=== PATIENT | male | born 1975 | race Caucasian/White ===

== ENCOUNTER 2016-10-22 02:41 | Emergency (ER) | payer MEDICAID ==
[2016-10-22 02:50] VITALS: BP 138/90; PULSE 71; RESP 18; TEMP 97.7; O2SAT 99; BMI 30.9
[2016-10-22] MEDS ORDERED: Albuterol-Ipratrop 3 mg / 0.5 (3 ml) UD IH STA (03:01)
--- NOTE | 2016-10-22 03:04 | ED PDOC ---
Arrival/HPI - General Chief Complaint: Chest Pain Time Seen by Provider: 10/22/16 02:42 Historian: Patient - History of Present Illness Narrative History of Present Illness (Text): 10/22/16 02:58 Ramiro Valdes is a 40 year old male smoker, whose past medical history includes asthma, who presents to the Emergency department complaining of chest tightness. Patient states at 01:00 tonight he got up, went to the bathroom, and began experiencing chest tightness. Patient states chest tightness is different from his usual asthma symptoms. Patient reports a family history of heart disease in both his mother and father. Patient denies any fever, chills, shortness of breath, nausea, vomiting, diarrhea, urinary symptoms, back pain, neck pain, headache, dizziness, or any other complaints. Time/Duration: 1-3 hours (01:00 tonight) Symptom Onset: Gradual Symptom Course: Unchanged Quality: Tightness Activities at Onset: Rest, Light Context: Home Past Medical History - Provider Review Nursing Documentation Reviewed: Yes - Infectious Disease Hx of Infectious Diseases: None - Cardiac Hx Cardiac Disorders: No - Pulmonary Hx Respiratory Disorders: Yes Hx Asthma: Yes - Neurological Hx Neurological Disorder: No - HEENT Hx HEENT Disorder: No - Renal Hx Renal Disorder: No - Endocrine/Metabolic Hx Endocrine Disorders: No - Hematological/Oncological Hx Blood Disorders: Yes Hx Anemia: Yes Hx Hepatitis C: Yes - Integumentary Hx Dermatological Disorder: No - Musculoskeletal/Rheumatological Hx Musculoskeletal Disorders: No - Gastrointestinal Hx Gastrointestinal Disorders: No - Genitourinary/Gynecological Hx Genitourinary Disorders: No - Psychiatric Hx Psychophysiologic Disorder: No Hx Anxiety: No Hx Bipolar Disorder: No Hx Depression: No Hx Emotional Abuse: No Hx Hallucinations: No Hx Panic Disorder: No Hx Post Traumatic Stress Disorder: No Hx Psychosis: No Hx Physical Abuse: No Hx Schizophrenia: No Hx Sexual Abuse: No Hx Substance Use: No - Surgical History Other/Comment: Hernia repair - Anesthesia Hx Anesthesia: Yes Hx Anesthesia Reactions: No Hx Malignant Hyperthermia: No Family/Social History - Physician Review Nursing Documentation Reviewed: Yes Family/Social History: CAD/CT Smoking Status: Heavy Smoker > 10 Cigarettes Daily Hx Alcohol Use: No Hx Substance Use: No Allergies/Home Meds Allergies/Adverse Reactions: Allergies No Known Allergies Allergy (Verified 07/08/15 08:19) Review of Systems - Physician Review All systems were reviewed & negative as marked: Yes - Review of Systems Constitutional: Normal. absent: Fevers Eyes: Normal ENT: Normal Respiratory: Normal Cardiovascular: Chest Pain Gastrointestinal: Normal. absent: Abdominal Pain, Diarrhea, Nausea, Vomiting Genitourinary Male: Normal. absent: Dysuria, Frequency, Hematuria, Urinary Output Changes Musculoskeletal: Normal. absent: Back Pain, Neck Pain Skin: Normal. absent: Rash Neurological: Normal. absent: Headache, Dizziness Endocrine: Normal Hemo/Lymphatic: Normal Psychiatric: Normal Physical Exam Vital Signs Reviewed: Yes Vital Signs Temp Pulse Resp BP Pulse Ox 10/22/16 02:49 97.7 F 71 18 138/90 99 Temperature: Afebrile Blood Pressure: Normal Pulse: Regular Respiratory Rate: Normal Appearance: Positive for: Well-Appearing, Non-Toxic, Comfortable Pain Distress: None Mental Status: Positive for: Alert and Oriented X 3 - Systems Exam Head: Present: Atraumatic, Normocephalic Pupils: Present: PERRL Extroacular Muscles: Present: EOMI Conjunctiva: Present: Normal Mouth: Present: Moist Mucous Membranes Neck: Present: Normal Range of Motion Respiratory/Chest: Present: Wheezes (Slight wheeze). No: Respiratory Distress, Accessory Muscle Use Cardiovascular: Present: Regular Rate and Rhythm, Normal S1, S2. No: Murmurs Abdomen: Present: Normal Bowel Sounds. No: Tenderness, Distention, Peritoneal Signs Back: Present: Normal Inspection Upper Extremity: Present: Normal Inspection. No: Cyanosis, Edema Lower Extremity: Present: Normal Inspection. No: Edema Neurological: Present: GCS=15, CN II-XII Intact, Speech Normal Skin: Present: Warm, Dry, Normal Color. No: Rashes Psychiatric: Present: Alert, Oriented x 3, Normal Insight, Normal Concentration Medical Decision Making ED Course and Treatment: 10/22/16 02:58 Impression: 40 year old male complaining of chest tightness since 01:00. Plan: -- EKG -- Chest X-ray -- Labs, cardiac enzymes -- Aspirin -- Duoneb -- Reassess and disposition Progress Notes: Reviewed EKG, NSR at [address]-segment elevations or depressions, no T-wave inversions, normal intervals. 10/22/16 04:43 Reviewed radiology, Chest X-ray shows no acute processes. 10/22/16 04:46 Discussed results and plan with patient. Patient was offered hospital admission for further evaluation and monitoring of symptoms. Patient states he does not wish to stay. Patient is choosing to leave against medical advice. Explained to the patient that choosing to do so may result in permanent bodily harm or . Discussed at great length that without further evaluation and monitoring there may be unforeseen circumstances and/or deterioration causing permanent bodily harm or as a result of their choice. Patient is alert, oriented, and shows the mental capacity to make clear decisions regarding the patients health care at this time. Patient continues to wish to leave against medical advice. Patient has been advised that they should return to the emergency room immediately if they change their mind at any time, or if their condition begins to change or worsen in any way. - Lab Interpretations Lab Results: 10/22/16 03:25 10/22/16 03:25 Lab Results 10/22/16 03:25: WBC 8.8, RBC 4.16, Hgb 12.3 L, Hct 36.6 L, MCV 88.0, MCH 29.6, MCHC 33.6, RDW 14.2, Plt Count 237, MPV 10.8 10/22/16 03:25: Sodium 141, Potassium 4.3, Chloride 106, Carbon Dioxide 27, Anion Gap 12, BUN 17, Creatinine 1.0, Est GFR ( Amer) > 60, Est GFR (Non- Af Amer) > 60, Random Glucose 120 H, Calcium 8.7, Total Bilirubin 0.3, AST 43, ALT 33, Alkaline Phosphatase 59, Lactate Dehydrogenase 511, Total Creatine Kinase 272 H, CK-MB (CK-2) 1.4, CK-MB (CK-2) % Cancelled, Troponin I < 0.01, Total Protein 7.2, Albumin 4.1, Globulin 3.1, Albumin/Globulin Ratio 1.3 10/22/16 03:25: PT 10.7, INR 0.99, APTT 24.2 I have reviewed the lab results: Yes - RAD Interpretation Radiology Orders: 10/22/16 02:59 CHEST PORTABLE [RAD] Stat Parachutist/Combatant Diver Qualified: ED Physician - EKG Interpretation Interpreted by ED Physician: Yes Type: 12 lead EKG - Medication Orders Current Medication Orders: Discontinued Medications Albuterol/Ipratropium (Duoneb 3 Mg/0.5 Mg (3 Ml) Ud) 3 ml IH ONCE STA Stop: 10/22/16 03:02 Last Admin: 10/22/16 03:11 Dose: 3 ml Aspirin (Aspirin) 325 mg PO ONCE STA Stop: 10/22/16 03:02 Last Admin: 10/22/16 03:11 Dose: 325 mg - Scribe Statement The provider has reviewed the documentation as recorded by the Mamadouibjacqueline Gonzalez All medical record entries made by the Mamadouibjacqueline were at my direction and personally dictated by me. I have reviewed the chart and agree that the record accurately reflects my personal performance of the history, physical exam, medical decision making, and the department course for this patient. I have also personally directed, reviewed, and agree with the discharge instructions and disposition. Disposition/Present on Arrival - Present on Arrival Any Indicators Present on Arrival: No History of DVT/PE: No History of Uncontrolled Diabetes: No Urinary Catheter: No History of Decub. Ulcer: No History Surgical Site Infection Following: None - Disposition Have Diagnosis and Disposition been Completed?: Yes Diagnosis: Chest pain Disposition: AGAINST MEDICAL ADVICE Disposition Time: 04:49 Condition: STABLE Discharge Instructions (ExitCare): Chest Pain (ED) Prescriptions: Albuterol HFA [Ventolin HFA 90 mcg/actuation (8 g)] 2 puff IH [id number] PRN #1 puff PRN Reason: Wheezing
[2016-10-22 04:01] LABS: INR 0.99 (0.93-1.08); PARTIAL THROMBOPLASTIN TIME 24.2 Seconds (23.7-30.8)
[2016-10-22 04:02] LABS: ALB/GLOB RATIO 1.3 (1.1-1.8); ALKALINE PHOSPHATASE 59 U/L (38-133); ALT/SGPT 33 U/L (7-56); AST/SGOT 43 U/L (15-59); BILIRUBIN,TOTAL 0.3 mg/dL (0.2-1.3); BLOOD UREA NITROGEN 17 mg/dL (7-21); CALCIUM 8.7 mg/dL (8.4-10.5); CARBON DIOXIDE 27 mmol/L (21-33); CHLORIDE 106 mmol/L (98-107); GFR AFRICAN-AMERICAN > 60; GLUCOSE,RANDOM 120 mg/dL (70-110); POTASSIUM 4.3 mmol/L (3.6-5.0); SODIUM 141 mmol/L (132-148); TOTAL PROTEIN 7.2 g/dL (5.8-8.3)
[2016-10-22 04:05] LABS: HEMATOCRIT 36.6 % (42.0-52.0); MEAN CORPUSCULAR HEMOGLOBIN 29.6 pg (25.0-35.0); MEAN CORPUSCULAR HGB CONC 33.6 g/dl (31.0-37.0); MEAN PLATELET VOLUME 10.8 fl (7.0-11.0); RED CELL DISTRIBUTION WIDTH 14.2 % (11.5-14.5); WHITE BLOOD COUNT 8.8 10^3/ul (4.5-11.0)
[2016-10-22 04:13] LABS: TROPONIN I < 0.01 ng/mL
--- NOTE | 2016-10-22 12:14 | RAD ---
HISTORY: chest tightness COMPARISON: No prior. FINDINGS: LUNGS: No active pulmonary disease. PLEURA: No significant pleural effusion identified, no pneumothorax apparent. CARDIOVASCULAR: Normal. OSSEOUS STRUCTURES: No significant abnormalities. VISUALIZED UPPER ABDOMEN: Normal. OTHER FINDINGS: None. IMPRESSION: No active disease.
--- NOTE | 2016-10-23 01:35 | CARD ---
APPROVED REPORT EKG Measurement Heart [id number] <Conclusion> Normal sinus rhythm Normal ECG
== END 2016-10-22 04:40 | disposition left against medical advice (07) ==
LOC: ED 02:41
DX: R07.9 Chest pain, unspecified (principal); Z82.49 Family history of ischemic heart disease and other diseases of the circulatory system

== ENCOUNTER 2017-10-03 00:22 | Observation (INO) | payer MEDICAID ==
--- NOTE | 2017-10-03 01:55 | ED PDOC ---
Arrival/HPI - General Chief Complaint: Chest Pain Time Seen by Provider: 10/03/17 00:31 Historian: Patient, Family - History of Present Illness Narrative History of Present Illness (Text): 10/03/17 01:55 Ramiro Valdes is a 41 year old male smoker, whose past medical history includes asthma, who presents to the Emergency department complaining of intermittent chest heaviness radiating down his left arm since yesterday afternoon. Patient notes he has experienced similar symptoms in the past. Patient reports a family history of heart disease. Patient denies any fever, chills, shortness of breath, nausea, vomiting, diarrhea, urinary symptoms, back pain, neck pain, headache, dizziness, or any other complaints. Symptom Onset: Gradual Symptom Course: Unchanged Activities at Onset: Light Context: Home Past Medical History - Provider Review Nursing Documentation Reviewed: Yes - Infectious Disease Hx of Infectious Diseases: None - Cardiac Hx Cardiac Disorders: No - Pulmonary Hx Respiratory Disorders: Yes Hx Asthma: Yes - Neurological Hx Neurological Disorder: No - HEENT Hx HEENT Disorder: No - Renal Hx Renal Disorder: No - Endocrine/Metabolic Hx Endocrine Disorders: No - Hematological/Oncological Hx Blood Disorders: Yes Hx Anemia: Yes Hx Hepatitis C: Yes - Integumentary Hx Dermatological Disorder: No - Musculoskeletal/Rheumatological Hx Musculoskeletal Disorders: No - Gastrointestinal Hx Gastrointestinal Disorders: No - Genitourinary/Gynecological Hx Genitourinary Disorders: No - Psychiatric Hx Psychophysiologic Disorder: No Hx Anxiety: No Hx Bipolar Disorder: No Hx Depression: No Hx Emotional Abuse: No Hx Hallucinations: No Hx Panic Disorder: No Hx Post Traumatic Stress Disorder: No Hx Psychosis: No Hx Physical Abuse: No Hx Schizophrenia: No Hx Sexual Abuse: No Hx Substance Use: No - Surgical History Other/Comment: Hernia repair - Anesthesia Hx Anesthesia: Yes Hx Anesthesia Reactions: No Hx Malignant Hyperthermia: No Family/Social History - Physician Review Nursing Documentation Reviewed: Yes Family/Social History: Unknown Family HX Smoking Status: Heavy Smoker > 10 Cigarettes Daily Hx Alcohol Use: No Hx Substance Use: No Allergies/Home Meds Allergies/Adverse Reactions: Allergies No Known Allergies Allergy (Verified 10/03/17 00:30) Review of Systems - Physician Review All systems were reviewed & negative as marked: Yes - Review of Systems Constitutional: Normal. absent: Fevers Eyes: Normal ENT: Normal Respiratory: Normal. absent: SOB, Cough Cardiovascular: Chest Pain Gastrointestinal: Normal. absent: Abdominal Pain, Diarrhea, Nausea, Vomiting Genitourinary Male: Normal. absent: Dysuria, Frequency, Hematuria, Urinary Output Changes Musculoskeletal: Normal. absent: Back Pain, Neck Pain Skin: Normal. absent: Rash Neurological: Normal. absent: Headache, Dizziness Endocrine: Normal Hemo/Lymphatic: Normal Psychiatric: Normal Physical Exam Vital Signs Reviewed: Yes Vital Signs Temp Pulse Resp BP Pulse Ox 10/03/17 03:53 98.0 F 74 18 134/84 97 Temperature: Afebrile Blood Pressure: Normal Pulse: Regular Respiratory Rate: Normal Appearance: Positive for: Well-Appearing, Non-Toxic, Comfortable Pain Distress: None Mental Status: Positive for: Alert and Oriented X 3 - Systems Exam Head: Present: Atraumatic, Normocephalic Pupils: Present: PERRL Extroacular Muscles: Present: EOMI Conjunctiva: Present: Normal Mouth: Present: Moist Mucous Membranes Neck: Present: Normal Range of Motion Respiratory/Chest: Present: Clear to Auscultation, Good Air Exchange. No: Respiratory Distress, Accessory Muscle Use Cardiovascular: Present: Regular Rate and Rhythm, Normal S1, S2. No: Murmurs Abdomen: No: Tenderness, Distention, Peritoneal Signs Back: Present: Normal Inspection Upper Extremity: Present: Normal Inspection. No: Cyanosis, Edema Lower Extremity: Present: Normal Inspection. No: Edema Neurological: Present: GCS=15, CN II-XII Intact, Speech Normal Skin: Present: Warm, Dry, Normal Color. No: Rashes Psychiatric: Present: Alert, Oriented x 3, Normal Insight, Normal Concentration Medical Decision Making ED Course and Treatment: 10/03/17 01:55 Impression: 41 year old male complaining of chest heaviness radiating down his left arm since yesterday afternoon. Plan: -- EKG -- Chest X-ray -- Labs, cardiac enzymes -- Reassess and disposition Progress Notes: Reviewed EKG, NSR at [address]-segment elevations or depressions, no T-wave inversions, normal intervals. 10/03/17 03:34 Chest X-ray reviewed, shows no acute processes. 10/03/17 04:31 Case discussed with medical consultant inspection manager, who is aware and agrees with plan. Case discussed with Dr. Huerta, who is aware and agrees with plan. Accepts pt in to hospitalist service. Pt will go to Telemetry observation for chest pain. - Lab Interpretations Lab Results: 10/03/17 02:46 10/03/17 02:46 Lab Results 10/03/17 02:46: WBC 10.9 D, RBC 4.58, Hgb 12.7 L, Hct 38.9 L, MCV 84.9, MCH 27.7, MCHC 32.6, RDW 14.8 H, Plt Count 212, MPV 9.6 10/03/17 02:46: Sodium 143, Potassium 4.3, Chloride 104, Carbon Dioxide 28, Anion Gap 15, BUN 16, Creatinine 1.0, Est GFR ( Amer) > 60, Est GFR (Non- Af Amer) > 60, Random Glucose 99, Calcium 9.1, Total Bilirubin 0.2, AST 31, ALT 30, Alkaline Phosphatase 87, Lactate Dehydrogenase 533, Total Creatine Kinase 233 H, CK-MB (CK-2) 0.7, CK-MB (CK-2) % Cancelled, Troponin I < 0.01, Total Protein 7.7, Albumin 4.2, Globulin 3.5, Albumin/Globulin Ratio 1.2 10/03/17 02:46: PT 12.3, INR 1.08, APTT 30.2 I have reviewed the lab results: Yes - RAD Interpretation Radiology Orders: 10/03/17 01:55 CHEST PORTABLE [RAD] Stat Nuclear Power Plant Engineer: ED Physician - EKG Interpretation Interpreted by ED Physician: Yes Type: 12 lead EKG - Medication Orders Current Medication Orders: Aspirin (Aspirin) 325 mg PO ONCE STA Stop: 10/03/17 04:39 - Scribe Statement The provider has reviewed the documentation as recorded by the Juan Gonzalez Provider Scribe Attestation: All medical record entries made by the Scribjacqueline were at my direction and personally dictated by me. I have reviewed the chart and agree that the record accurately reflects my personal performance of the history, physical exam, medical decision making, and the department course for this patient. I have also personally directed, reviewed, and agree with the discharge instructions and disposition. Disposition/Present on Arrival - Present on Arrival Any Indicators Present on Arrival: No History of DVT/PE: No History of Uncontrolled Diabetes: No Urinary Catheter: No History of Decub. Ulcer: No History Surgical Site Infection Following: None - Disposition Have Diagnosis and Disposition been Completed?: Yes Diagnosis: Chest pain Disposition: HOSPITALIZED Disposition Time: 04:39 Condition: STABLE Discharge Instructions (ExitCare): Chest Pain (ED) Forms: [employer] (French)
[2017-10-03 03:06] LABS: HEMOGLOBIN 12.7 g/dL (14.0-18.0); MEAN CELL VOLUME 84.9 fl (80.0-105.0); MEAN CORPUSCULAR HEMOGLOBIN 27.7 pg (25.0-35.0); MEAN CORPUSCULAR HGB CONC 32.6 g/dl (31.0-37.0); MEAN PLATELET VOLUME 9.6 fl (7.0-11.0); RBC 4.58 10^6/uL (3.5-6.1); RED CELL DISTRIBUTION WIDTH 14.8 % (11.5-14.5); WHITE BLOOD COUNT 10.9 10^3/ul (4.5-11.0)
[2017-10-03 03:12] LABS: ALB/GLOB RATIO 1.2 (1.1-1.8); ALBUMIN 4.2 g/dL (3.0-4.8); ALT/SGPT 30 U/L (7-56); AST/SGOT 31 U/L (17-59); BLOOD UREA NITROGEN 16 mg/dL (7-21); CALCIUM 9.1 mg/dL (8.4-10.5); GFR AFRICAN-AMERICAN > 60; GFR NON-AFRICAN AMERICAN > 60
[2017-10-03 03:16] LABS: INR 1.08 (0.93-1.08); PARTIAL THROMBOPLASTIN TIME 30.2 Seconds (25.1-36.5); PROTHROMBIN TIME 12.3 SECONDS (9.4-12.5)
[2017-10-03 03:23] LABS: TROPONIN I < 0.01 ng/mL
[2017-10-03 03:30] LABS: CK-MB 0.7 ng/mL (0.0-3.6)
[2017-10-03 03:56] VITALS: RESP 18
--- NOTE | 2017-10-03 04:34 | CP.PCM.HP ---
<An Matias - Last Filed: 10/03/17 05:46> History of Present Illness - History of Present Illness History of Present Illness: 41 year old male with a PMHx of Asthma, Tobacco Abuse, Hepatitis C (untreated), and Heroin Abuse who presents with complaints of 7/10 pressure-like chest pain that radiates down his left arm that started 11Am yesterday. Associated his chest pain is SOB. Patient has experiencing intermittent chest pain at rest for the past few week and stated it worsened yesterday. Patient denies any fever, headache, vision changes, palpitations, abdominal pain, nausea, vomiting, diarrhea, or urinary symptoms. Patient does complain of constipation x 1 week. ROS: As stated above PMHx: Asthma, Tobacco Abuse, Hepatitis C (untreated), Heroin Abuse PSHx: Right Inguinal Hernia Repair Allergies: Hay Fever SocialHx: 1 PPD for 20 years. Denies Alcohol. History of Heroin abuse but denies current usage. Goes to [facility] FamHx: Father - CHF with pacemaker Meds: Reviewed, takes 100mg of Methadone Daily PMD: Dr. Ga Present on Admission - Present on Admission Any Indicators Present on Admission: No Review of Systems - Review of Systems All systems: reviewed and no additional remarkable complaints except (As per HPI ) Review of Systems: As per HPI Past Patient History - Infectious Disease Hx of Infectious Diseases: None - Past Social History Smoking Status: Heavy Smoker > 10 Cigarettes Daily - CARDIAC Hx Cardiac Disorders: No - PULMONARY Hx Respiratory Disorders: Yes Hx Asthma: Yes - NEUROLOGICAL Hx Neurological Disorder: No - HEENT Hx HEENT Problems: No - RENAL Hx Chronic Kidney Disease: No - ENDOCRINE/METABOLIC Hx Endocrine Disorders: No - HEMATOLOGICAL/ONCOLOGICAL Hx Blood Disorders: Yes Hx Anemia: Yes Hx Hepatitis C: Yes - INTEGUMENTARY Hx Dermatological Problems: No - MUSCULOSKELETAL/RHEUMATOLOGICAL Hx Musculoskeletal Disorders: No - GASTROINTESTINAL Hx Gastrointestinal Disorders: No - GENITOURINARY/GYNECOLOGICAL Hx Genitourinary Disorders: No - PSYCHIATRIC Hx Psychophysiologic Disorder: No Hx Anxiety: No Hx Bipolar Disorder: No Hx Depression: No Hx Emotional Abuse: No Hx Hallucinations: No Hx Panic Symptoms: No Hx Post Traumatic Stress Disorder: No Hx Psychosis: No Hx Physical Abuse: No Hx Schizophrenia: No Hx Sexual Abuse: No Hx Substance Use: No - SURGICAL HISTORY Other/Comment: Hernia repair - ANESTHESIA Hx Anesthesia: Yes Hx Anesthesia Reactions: No Hx Malignant Hyperthermia: No Meds Allergies/Adverse Reactions: Allergies Allergy/AdvReac Type Severity Reaction Status Date / Time No Known Allergies Allergy Verified 10/03/17 00:30 Physical Exam - Head Exam Head Exam: ATRAUMATIC, NORMAL INSPECTION, NORMOCEPHALIC - Eye Exam Eye Exam: EOMI, Normal appearance. absent: Scleral icterus - ENT Exam ENT Exam: Mucous Membranes Moist - Respiratory Exam Respiratory Exam: Clear to Auscultation Bilateral, NORMAL BREATHING PATTERN. absent: Accessory Muscle Use, Rales, Rhonchi, Wheezes - Cardiovascular Exam Cardiovascular Exam: RRR, +S1, +S2 - GI/Abdominal Exam GI & Abdominal Exam: Normal Bowel Sounds, Soft. absent: Tenderness - Extremities Exam Extremities exam: Positive for: normal capillary refill, normal inspection, pedal pulses present. Negative for: pedal edema - Neurological Exam Neurological exam: Alert, Oriented x3 - Psychiatric Exam Psychiatric exam: Normal Affect, Normal Mood - Skin Additional comments: Multiple Tattoos Results - Vital Signs Recent Vital Signs: Last Vital Signs Temp 98.0 F 10/03/17 03:53 Pulse 74 10/03/17 03:53 Resp 18 10/03/17 03:53 BP 134/84 10/03/17 03:53 Pulse Ox 97 10/03/17 03:53 - Labs Result Diagrams: 10/03/17 02:46 10/03/17 02:46 Labs: Laboratory Results - last 24 hr 10/03/17 10/03/17 10/03/17 02:46 02:46 02:46 WBC 10.9 D RBC 4.58 Hgb 12.7 L Hct 38.9 L MCV 84.9 MCH 27.7 MCHC 32.6 RDW 14.8 H Plt Count 212 MPV 9.6 PT 12.3 INR 1.08 APTT 30.2 Sodium 143 Potassium 4.3 Chloride 104 Carbon Dioxide 28 Anion Gap 15 BUN 16 Creatinine 1.0 Est GFR ( Amer) > 60 Est GFR (Non-Af Amer) > 60 Random Glucose 99 Calcium 9.1 Total Bilirubin 0.2 AST 31 ALT 30 Alkaline Phosphatase 87 Lactate Dehydrogenase 533 Total Creatine Kinase 233 H CK-MB (CK-2) 0.7 CK-MB (CK-2) % Cancelled Troponin I < 0.01 Total Protein 7.7 Albumin 4.2 Globulin 3.5 Albumin/Globulin Ratio 1.2 Assessment & Plan - Assessment and Plan (Free Text) Assessment: 41 year old male with a PMHx of Asthma, Tobacco Abuse, Hepatitis C (untreated), and Heroin Abuse admitted for evaluation and treatment of Chest Pain, R/O ACS Plan: Chest Pain, R/O ACS EKG: NSR with no ST or T wave abnormalities CXR: No Acute Disease Process. PENDING Official Read 1st Trop - NEGATIVE Serial Trops/EKG Cardiology Consult Constipation Colace Hx of Asthma Duonebs PRN Hx of Hep C untreated Patient should be given options for treatment before discharge Proph SCD's Patient discussed with Attending. (Dr. Huerta) An Matias, PGY-1 <Matthew Huerta - Last Filed: 10/03/17 06:49> Results - Vital Signs Recent Vital Signs: Last Vital Signs Temp 97.7 F 10/03/17 06:03 Pulse 79 10/03/17 06:03 Resp 18 10/03/17 06:03 BP 118/80 10/03/17 06:03 Pulse Ox 96 10/03/17 05:41 - Labs Result Diagrams: 10/03/17 02:46 10/03/17 02:46 Attending/Attestation - Attestation I have personally seen and examined this patient.: Yes I have fully participated in the care of the patient.: Yes I have reviewed all pertinent clinical information: Yes Notes (Text): 10/03/17 06:49 Patient was seen when he was in bed # 16 in the ER. Agree with history ,physical examinations, assessment and plan.
[2017-10-03] MEDS ORDERED: Albuterol-Ipratrop 3 mg / 0.5 (3 ml) UD IH PRN (05:09)
[2017-10-03 05:41] VITALS: O2SAT 96
[2017-10-03 06:11] VITALS: TEMP 97.7; BMI 34.3
[2017-10-03 08:32] LABS: BASO # 0.02 K/mm3 (0.0-2.0); BASO % 0.2 % (0.0-3.0); EOS # 0.4 (0.0-0.7); EOS % 3.8 % (1.5-5.0); GRAN # 6.2 (1.4-6.5); GRAN % 62.5 % (50.0-68.0); HEMOGLOBIN 12.5 g/dL (14.0-18.0); LYMPH # 2.7 (1.2-3.4); LYMPH % 26.8 % (22.0-35.0); MEAN CELL VOLUME 85.3 fl (80.0-105.0); MEAN CORPUSCULAR HEMOGLOBIN 27.5 pg (25.0-35.0); MEAN CORPUSCULAR HGB CONC 32.2 g/dl (31.0-37.0); MEAN PLATELET VOLUME 9.3 fl (7.0-11.0); MONO # 0.7 (0.1-0.6); MONO % 6.7 % (1.0-6.0); RBC 4.55 10^6/uL (3.5-6.1); RED CELL DISTRIBUTION WIDTH 14.9 % (11.5-14.5); WHITE BLOOD COUNT 9.9 10^3/ul (4.5-11.0)
[2017-10-03 08:38] LABS: ALB/GLOB RATIO 1.3 (1.1-1.8); ALBUMIN 4.3 g/dL (3.0-4.8); ALT/SGPT 33 U/L (7-56); AST/SGOT 25 U/L (17-59); BLOOD UREA NITROGEN 16 mg/dL (7-21); CALCIUM 8.9 mg/dL (8.4-10.5); GFR AFRICAN-AMERICAN > 60; GFR NON-AFRICAN AMERICAN > 60
[2017-10-03 08:50] LABS: TROPONIN I < 0.01 ng/mL
--- NOTE | 2017-10-03 09:15 | RAD ---
HISTORY: Chest pain COMPARISON: 10/22/2016 FINDINGS: LUNGS: No active pulmonary disease. PLEURA: No significant pleural effusion identified, no pneumothorax apparent. CARDIOVASCULAR: No radiographic findings to suggest acute or significant cardiovascular disease. OSSEOUS STRUCTURES: No significant abnormalities. VISUALIZED UPPER ABDOMEN: Normal. OTHER FINDINGS: None. IMPRESSION: No active disease. No significant interval change compared to the prior examination(s).
[2017-10-03 10:44] LABS: PHENCYCLIDINE, UR NEGATIVE (NEGATIVE)
[2017-10-03 10:46] LABS: BARBITURATES, UR NEGATIVE (NEGATIVE); BENZODIAZEPINES, UR NEGATIVE (NEGATIVE); OPIATES, UR POSITIVE (NEGATIVE)
[2017-10-03 11:36] VITALS: BP 128/82
--- NOTE | 2017-10-03 15:01 | CON ---
DATE: 10/03/2017 REQUESTING PHYSICIAN: Sarah Ge MD. REASON FOR CONSULTATION: Chest pain. HISTORY: This is a 41-year-old man with a history of tobacco abuse, who presented to the emergency room with chest discomfort radiating down his left arm. He describes his pain as a tingling sensation. In the emergency room, he reportedly to the staff that his pain was more pressure like. He cannot identify any relieving or precipitating factors. He states that he was sitting in a car when the symptoms began and this lasted for approximately 20 minutes. He has no prior cardiac history. He is not hypertensive or diabetic. He is a smoker 1 pack per day for many years. He is uncertain of his cholesterol status. His father did have heart disease, but not at particularly young age. PAST MEDICAL HISTORY: His past history is notable for the problems mentioned above. Reportedly, he has a history of asthma. He has undergone a prior inguinal herniorrhaphy. 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 CURRENT MEDICATIONS: Methadone 100 mg daily. ALLERGIES: NO DRUG ALLERGIES NOTED. SOCIAL HISTORY: He is a smoker for a pack per day as mentioned. He denies alcohol use. He denies any current marijuana abuse. FAMILY HISTORY: Mother is alive with a history of diabetes. Father is alive with a history of coronary artery disease, congestive heart failure and pacemaker implant. REVIEW OF SYSTEMS: A 10-point review of systems is otherwise unremarkable. PHYSICAL EXAMINATION: GENERAL: He is a middle-aged man, who appears comfortable at the present time. VITAL SIGNS: His blood pressure is 118/80 with a pulse of 74, respirations are 14. He is afebrile. HEENT: Head normocephalic, atraumatic. NECK: Supple. No JVD is noted. CHEST: Bilateral scattered rhonchi heard. HEART: PMI displaced laterally with a soft systolic murmur present at the lower left sternal border. ABDOMEN: Soft, nontender, normoactive bowel sounds. EXTREMITIES: No edema. PSYCHIATRIC: Normal mood and affect. NEUROLOGIC: Alert and oriented x3. No gross motor or sensory deficits appreciable. DIAGNOSTIC DATA: Initial cardiac enzymes, troponin is negative, CK is 233 with a negative MB fraction. Potassium 4.3, BUN and creatinine are 16 and 1. White count 10.9, hemoglobin and hematocrit 12.7 and 38.9 with a platelet count of 212,000. PT/PTT are normal. An electrocardiogram reveals sinus rhythm with nonspecific ST-T abnormalities. Chest x-ray reveals normal cardiac silhouette with clear lung escalante. IMPRESSION: Chest pain appears somewhat atypical in nature given the characteristics. He does have significant cardiac risk factors given his history of tobacco abuse. In addition, there may be some family history of significant coronary artery disease. RECOMMENDATIONS: Followup enzymes are advised. If these are negative, discharge home with outpatient stress test would be reasonable. Then, the need for smoking abstinence was then emphasized to him. Continued avoidance of drug use is advised as well. Thank you for this consultation. We will be happy to see as needed. Dylan Ornelas MD
[2017-10-03 15:02] VITALS: PULSE 87
--- NOTE | 2017-10-03 18:08 | CARD ---
APPROVED REPORT EXAM: Two-dimensional and M-mode echocardiogram with Doppler and color Doppler. INDICATION Chest Pain 2D DIMENSIONS Left Atrium (2D)4.0 (1.6-4.0cm)IVSd1.2 (0.7-1.1cm) LVDd4.3 (3.9-5.9cm)PWd1.1 (0.7-1.1cm) LVDs2.7 (2.5-4.0cm)FS (%) 37.2 % LVEF (%)67.5 (>50%) M-Mode DIMENSIONS Aortic Root2.70 (2.2-3.7cm)Aortic Cusp Exc.1.80 (1.5-2.0cm) Aortic Valve AoV Peak Basbvlgx214.0cm/Mark Peak GR.10mmHg Mitral Valve E/A ratio0.0 TDI E/Lateral E'0.0E/Medial E'0.0 Tricuspid Valve TR Peak [id number]/sRAP [id number] Peak Gr.17mmHg [id number] LEFT VENTRICLE The left ventricle is normal size. There is normal left ventricular wall thickness. The left ventricular function is normal. The left ventricular ejection fraction is within the normal range. There is normal LV segmental wall motion. Transmitral Doppler flow pattern is Grade I-abnormal relaxation pattern. RIGHT VENTRICLE The right ventricle is normal size. There is normal right ventricular wall thickness. The right ventricular systolic function is normal. ATRIA The left atrium size is normal. The right atrium size is normal. AORTIC VALVE The aortic valve is moderately thickened. There is moderate aortic regurgitation. There is no aortic valvular stenosis. MITRAL VALVE The mitral valve is normal in structure. Mitral regurgitation is trace. TRICUSPID VALVE The tricuspid valve is normal in structure. There is mild tricuspid regurgitation. GREAT VESSELS The aortic root is normal in size. The IVC is normal in size and collapses >50% with inspiration. PERICARDIAL EFFUSION There is no pericardial effusion. <Conclusion> The left ventricle is normal size. There is normal left ventricular wall thickness. The left ventricular function is normal. The left ventricular ejection fraction is within the normal range. There is normal LV segmental wall motion. Transmitral Doppler flow pattern is Grade I-abnormal relaxation pattern. There is moderate aortic regurgitation.
--- NOTE | 2017-10-03 19:09 | CARD ---
APPROVED REPORT EKG Measurement Heart [id number] <Conclusion> Normal sinus rhythm Normal ECG
--- NOTE | 2017-10-03 19:18 | CARD ---
APPROVED REPORT EKG Measurement Heart [id number] <Conclusion> Normal sinus rhythm Normal ECG
--- NOTE | 2017-10-03 19:21 | CARD ---
APPROVED REPORT EKG Measurement Heart [id number] <Conclusion> Normal sinus rhythm Normal ECG
--- NOTE | 2017-10-03 20:08 | CP.PCM.DIS ---
<John Barry - Last Filed: 10/03/17 20:09> Provider - Provider Date of Admission: 10/03/17 04:36 Attending physician: Sarah Ge MD Primary care physician: Tavares Ga MD Consults: Cardio: Jeremykind Time Spent in preparation of Discharge (in minutes): 45 Hospital Course - Lab Results Lab Results: Most Recent Lab Values WBC 9.9 10^3/ul (4.5-11.0) 10/03/17 08:15 RBC 4.55 10^6/uL (3.5-6.1) 10/03/17 08:15 Hgb 12.5 g/dL (14.0-18.0) L 10/03/17 08:15 Hct 38.8 % (42.0-52.0) L 10/03/17 08:15 MCV 85.3 fl (80.0-105.0) 10/03/17 08:15 MCH 27.5 pg (25.0-35.0) 10/03/17 08:15 MCHC 32.2 g/dl (31.0-37.0) 10/03/17 08:15 RDW 14.9 % (11.5-14.5) H 10/03/17 08:15 Plt Count 204 10^3/uL (120.0-450.0) 10/03/17 08:15 MPV 9.3 fl (7.0-11.0) 10/03/17 08:15 Gran % 62.5 % (50.0-68.0) 10/03/17 08:15 Lymph % (Auto) 26.8 % (22.0-35.0) 10/03/17 08:15 Moore % (Auto) 6.7 % (1.0-6.0) H 10/03/17 08:15 Eos % (Auto) 3.8 % (1.5-5.0) 10/03/17 08:15 Baso % (Auto) 0.2 % (0.0-3.0) 10/03/17 08:15 Gran # 6.20 (1.4-6.5) 10/03/17 08:15 Lymph # (Auto) 2.7 (1.2-3.4) 10/03/17 08:15 Moore # (Auto) 0.7 (0.1-0.6) H 10/03/17 08:15 Eos # (Auto) 0.4 (0.0-0.7) 10/03/17 08:15 Baso # (Auto) 0.02 K/mm3 (0.0-2.0) 10/03/17 08:15 PT 12.3 SECONDS (9.4-12.5) 10/03/17 02:46 INR 1.08 (0.93-1.08) 10/03/17 02:46 APTT 30.2 Seconds (25.1-36.5) 10/03/17 02:46 Sodium 142 mmol/L (132-148) 10/03/17 08:15 Potassium 4.0 mmol/L (3.6-5.0) 10/03/17 08:15 Chloride 105 mmol/L (98-107) 10/03/17 08:15 Carbon Dioxide 26 mmol/L (21-33) 10/03/17 08:15 Anion Gap 15 (10-20) 10/03/17 08:15 BUN 16 mg/dL (7-21) 10/03/17 08:15 Creatinine 1.1 mg/dl (0.8-1.5) 10/03/17 08:15 Est GFR ( Amer) > 60 10/03/17 08:15 Est GFR (Non-Af Amer) > 60 10/03/17 08:15 Random Glucose 113 mg/dL (70-110) H 10/03/17 08:15 Calcium 8.9 mg/dL (8.4-10.5) 10/03/17 08:15 Total Bilirubin 0.2 mg/dL (0.2-1.3) 10/03/17 08:15 AST 25 U/L (17-59) 10/03/17 08:15 ALT 33 U/L (7-56) 10/03/17 08:15 Alkaline Phosphatase 87 U/L (38-126) 10/03/17 08:15 Lactate Dehydrogenase 533 U/L (333-699) 10/03/17 02:46 Total Creatine Kinase 233 U/L (35-230) H 10/03/17 02:46 CK-MB (CK-2) 0.7 ng/mL (0.0-3.6) 10/03/17 02:46 CK-MB (CK-2) % Cancelled 10/03/17 02:46 Troponin I < 0.01 ng/mL 10/03/17 14:20 Total Protein 7.5 g/dL (5.8-8.3) 10/03/17 08:15 Albumin 4.3 g/dL (3.0-4.8) 10/03/17 08:15 Globulin 3.2 gm/dL 10/03/17 08:15 Albumin/Globulin Ratio 1.3 (1.1-1.8) 10/03/17 08:15 Urine Opiates Screen Positive (NEGATIVE) H 10/03/17 10:10 Urine Methadone Screen Positive (NEGATIVE) H 10/03/17 10:10 Ur Barbiturates Screen Negative (NEGATIVE) 10/03/17 10:10 Ur Phencyclidine Scrn Negative (NEGATIVE) 10/03/17 10:10 Ur Amphetamines Screen Negative (NEGATIVE) 10/03/17 10:10 U Benzodiazepines Scrn Negative (NEGATIVE) 10/03/17 10:10 U Oth Cocaine Metabols Negative (NEGATIVE) 10/03/17 10:10 U Cannabinoids Screen Negative (NEGATIVE) 10/03/17 10:10 - Hospital Course Hospital Course: 41 year old male with a PMHx of Asthma, Tobacco Abuse, Hepatitis C (untreated), and Heroin Abuse who presented with complaints of pressure-like chest pain that radiated down his left arm and associated dyspnea. Patient was experiencing intermittent chest pain at rest for a week prior to admission. Patient was admitted for evaluation of his chest pain. Cardio was consulted and recommended outpatient stress test and discharge if ACS was ruled out. Troponin was negative x3. Echo was normal. As ACS was ruled out, patient was discharged and will follow up outpatient with wire spinner and his PMD. Patient was counselled on the risks of tobacco use and was advised cessation. Liver enzymes were normal during admission, however patient was advised to follow up outpatient with GI for hepatitis C treatment. Discharge Diagnosis - Chest pain, ACS ruled out - Tobacco abuse Discharge Exam - Head Exam Head Exam: ATRAUMATIC, NORMAL INSPECTION, NORMOCEPHALIC - Eye Exam Eye Exam: Normal appearance - ENT Exam ENT Exam: Normal Exam - Neck Exam Neck exam: Normal Inspection - Respiratory Exam Respiratory Exam: Clear to PA & Lateral. absent: Chest Wall Tenderness, Rales, Rhonchi, Wheezes, Respiratory Distress - Cardiovascular Exam Cardiovascular Exam: RRR, +S1, +S2. absent: Diastolic murmur, Gallop, Rubs, Systolic Murmur - GI/Abdominal Exam GI & Abdominal Exam: Soft. absent: Distended, Guarding, Rebound, Tenderness - Back Exam Back exam: NORMAL INSPECTION - Neurological Exam Neurological exam: Alert, CN II-XII Intact, Oriented x3 - Psychiatric Exam Psychiatric exam: Normal Affect, Normal Mood - Skin Skin Exam: Dry, Intact, Normal Color, Warm Discharge Plan - Follow Up Plan Condition: STABLE Disposition: HOME/ ROUTINE Instructions: Echocardiogram, Adult, Cardiac Stress Test, Quitting Smoking for Older Adults, Smoking: Not Just Harmful to Your Lungs and Heart, Chest Pain (DC) , Drug Abuse and Drug Addiction (DC), Quitting Smoking, Chest Pain (DC), Chest Pain (GEN) Additional Instructions: Please resume all home medications as previously prescribed. Please follow up with your PMD (Dr. Ga) within 1 week of discharge. Get outpatient stress test. Please return to a hospital if you experience newly concerning or worsening symptoms. Referrals: Tavares Ga MD [Primary Care Provider] - <Ruddy Jenkins - Last Filed: 10/04/17 07:16> Provider - Provider Date of Admission: 10/03/17 04:36 Attending physician: Sarah Ge MD Primary care physician: Tavares Ga MD Hospital Course - Lab Results Lab Results: Most Recent Lab Values WBC 9.9 10^3/ul (4.5-11.0) 10/03/17 08:15 RBC 4.55 10^6/uL (3.5-6.1) 10/03/17 08:15 Hgb 12.5 g/dL (14.0-18.0) L 10/03/17 08:15 Hct 38.8 % (42.0-52.0) L 10/03/17 08:15 MCV 85.3 fl (80.0-105.0) 10/03/17 08:15 MCH 27.5 pg (25.0-35.0) 10/03/17 08:15 MCHC 32.2 g/dl (31.0-37.0) 10/03/17 08:15 RDW 14.9 % (11.5-14.5) H 10/03/17 08:15 Plt Count 204 10^3/uL (120.0-450.0) 10/03/17 08:15 MPV 9.3 fl (7.0-11.0) 10/03/17 08:15 Gran % 62.5 % (50.0-68.0) 10/03/17 08:15 Lymph % (Auto) 26.8 % (22.0-35.0) 10/03/17 08:15 Moore % (Auto) 6.7 % (1.0-6.0) H 10/03/17 08:15 Eos % (Auto) 3.8 % (1.5-5.0) 10/03/17 08:15 Baso % (Auto) 0.2 % (0.0-3.0) 10/03/17 08:15 Gran # 6.20 (1.4-6.5) 10/03/17 08:15 Lymph # (Auto) 2.7 (1.2-3.4) 10/03/17 08:15 Moore # (Auto) 0.7 (0.1-0.6) H 10/03/17 08:15 Eos # (Auto) 0.4 (0.0-0.7) 10/03/17 08:15 Baso # (Auto) 0.02 K/mm3 (0.0-2.0) 10/03/17 08:15 PT 12.3 SECONDS (9.4-12.5) 10/03/17 02:46 INR 1.08 (0.93-1.08) 10/03/17 02:46 APTT 30.2 Seconds (25.1-36.5) 10/03/17 02:46 Sodium 142 mmol/L (132-148) 10/03/17 08:15 Potassium 4.0 mmol/L (3.6-5.0) 10/03/17 08:15 Chloride 105 mmol/L (98-107) 10/03/17 08:15 Carbon Dioxide 26 mmol/L (21-33) 10/03/17 08:15 Anion Gap 15 (10-20) 10/03/17 08:15 BUN 16 mg/dL (7-21) 10/03/17 08:15 Creatinine 1.1 mg/dl (0.8-1.5) 10/03/17 08:15 Est GFR ( Amer) > 60 10/03/17 08:15 Est GFR (Non-Af Amer) > 60 10/03/17 08:15 Random Glucose 113 mg/dL (70-110) H 10/03/17 08:15 Calcium 8.9 mg/dL (8.4-10.5) 10/03/17 08:15 Total Bilirubin 0.2 mg/dL (0.2-1.3) 10/03/17 08:15 AST 25 U/L (17-59) 10/03/17 08:15 ALT 33 U/L (7-56) 10/03/17 08:15 Alkaline Phosphatase 87 U/L (38-126) 10/03/17 08:15 Lactate Dehydrogenase 533 U/L (333-699) 10/03/17 02:46 Total Creatine Kinase 233 U/L (35-230) H 10/03/17 02:46 CK-MB (CK-2) 0.7 ng/mL (0.0-3.6) 10/03/17 02:46 CK-MB (CK-2) % Cancelled 10/03/17 02:46 Troponin I < 0.01 ng/mL 10/03/17 14:20 Total Protein 7.5 g/dL (5.8-8.3) 10/03/17 08:15 Albumin 4.3 g/dL (3.0-4.8) 10/03/17 08:15 Globulin 3.2 gm/dL 10/03/17 08:15 Albumin/Globulin Ratio 1.3 (1.1-1.8) 10/03/17 08:15 Urine Opiates Screen Positive (NEGATIVE) H 10/03/17 10:10 Urine Methadone Screen Positive (NEGATIVE) H 10/03/17 10:10 Ur Barbiturates Screen Negative (NEGATIVE) 10/03/17 10:10 Ur Phencyclidine Scrn Negative (NEGATIVE) 10/03/17 10:10 Ur Amphetamines Screen Negative (NEGATIVE) 10/03/17 10:10 U Benzodiazepines Scrn Negative (NEGATIVE) 10/03/17 10:10 U Oth Cocaine Metabols Negative (NEGATIVE) 10/03/17 10:10 U Cannabinoids Screen Negative (NEGATIVE) 10/03/17 10:10 Attending/Attestation - Attestation I have personally seen and examined this patient.: Yes I have fully participated in the care of the patient.: Yes I have reviewed all pertinent clinical information, including history, physical exam and plan: Yes Notes (Text): 10/04/17 07:15 Attending note; Patient seen and examined with resident. Patient is a 41 year old male with a PMHx of Asthma, Tobacco Abuse, Hepatitis C (untreated), and Heroin Abuse who presented with complaints of pressure-like chest pain that radiated down his left arm and associated dyspnea. Patient had intermittent chest pain for a few weeks. Sometimes reproducible on palpation. Mostly musculoskeletal pain. Cardiac enzymes 3 negative. Echocardiogram preliminary without significant abnormality. Cardiology evaluation appreciated. Chronic methadone dependency. Currently denies using any IV drugs. Patient will be discharged home with outpatient follow-up with primary care. Patient will get a stress test by PMD. Patient is currently visiting [place]. Patient has primary care physician in [place]. Patient agreed to follow up with PMD for outpatient stress test.
== END 2017-10-03 16:40 | disposition home or self-care (01) ==
LOC: ED 00:22 → ERH 04:36 → 2RNO 05:51
PROVIDERS: ADMIT Internal Medicine; ATTEND Internal Medicine
DX: R07.89 Other chest pain (principal); B19.20 Unspecified viral hepatitis C without hepatic coma; F11.20 Opioid dependence, uncomplicated; F17.210 Nicotine dependence, cigarettes, uncomplicated; J45.909 Unspecified asthma, uncomplicated; Z82.49 Family history of ischemic heart disease and other diseases of the circulatory system; Z83.3 Family history of diabetes mellitus; J30.1 Allergic rhinitis due to pollen; D64.9 Anemia, unspecified
CPT/HCPCS: 71045; 80053; 80324; 80345; 80346; 80349; 80353; 80358; 80361; 82550; 82553; 83615; 83992; 84484; 85025; 85027; 85610; 85730; 93005; 93306; 99285; G0378